=== PATIENT | female | born 1995 | race Caucasian/White ===

== ENCOUNTER → 2017-02-05 | Outpatient (CLI) | payer OTHER | LOC: US 09:22 | DX: R10.84 Generalized abdominal pain (principal); R94.5 Abnormal results of liver function studies; K76.0 Fatty (change of) liver, not elsewhere classified | CPT/HCPCS: 76705 ==

== ENCOUNTER → 2017-02-23 | Outpatient (CLI) | payer OTHER | LOC: NM 13:39 | DX: R10.84 Generalized abdominal pain (principal); R19.7 Diarrhea, unspecified; R93.2 Abnormal findings on diagnostic imaging of liver and biliary tract | CPT/HCPCS: 78227; A9537; J2805 ==

== ENCOUNTER → 2017-03-09 | Outpatient (CLI) | payer OTHER | LOC: US 13:55 | DX: N92.6 Irregular menstruation, unspecified (principal) ==

== ENCOUNTER 2021-02-22 10:15 | Inpatient (IN) | payer BC, OTHER ==
[~2021-02-22] VITALS: Ht 157.5 cm; Wt 97.1 kg
[~2021-02-22 10:15] MED LIST: CIPRO500 MG PO
[2021-02-22 11:25] LABS: HEMOGLOBIN 12.2 gm/dl (12.3-15.3); RED BLOOD COUNT 4.19 M/UL (4.00-5.10); WHITE BLOOD COUNT 11.6 K/UL (4.5-11.0)
[2021-02-22 12:10] LABS: BUN/CREATININE RATIO 18 (0-10)
[2021-02-23] MEDS ORDERED: PRENATAL VITAM1 EAC5 PO (02:02)
[2021-02-23] MEDS ORDERED: COLACE100 MG PO (16:10)
[2021-02-23] MEDS ORDERED: IBUPROFEN800 MG PO (16:10)
[2021-02-23] MEDS ORDERED: PERCOCET 5/325 T1 EA PO (16:10)
[2021-02-24 02:22] LABS: HEMOGLOBIN 10.5 gm/dl (12.3-15.3)
== END 2021-02-25 11:24 | disposition home or self-care (01) | DRG 807 ==
LOC: GENOP 10:15 → OB 02-23 13:45
PROVIDERS: Obstetrics & Gynecology; ADMIT Obstetrics & Gynecology
PROC: 10E0XZZ Delivery of Products of Conception, External Approach (ICD-10-PCS; principal; 2021-02-23)
PROC: 10907ZC Drainage of Amniotic Fluid, Therapeutic from Products of Conception, Via Natural or Artificial Opening (ICD-10-PCS; 2021-02-23)
PROC: 0UQGXZZ Repair Vagina, External Approach (ICD-10-PCS; 2021-02-23)
PROC: 0U7C7ZZ Dilation of Cervix, Via Natural or Artificial Opening (ICD-10-PCS; 2021-02-23)
PROC: 3E0234Z Introduction of Serum, Toxoid and Vaccine into Muscle, Percutaneous Approach (ICD-10-PCS; 2021-02-25)
DX: O14.14 Severe pre-eclampsia complicating childbirth (principal); Z37.0 Single live birth; Z3A.36 36 weeks gestation of pregnancy; O70.0 First degree perineal laceration during delivery; O69.81X0 Labor and delivery complicated by cord around neck, without compression, not applicable or unspecified; Z88.1 Allergy status to other antibiotic agents; Z88.2 Allergy status to sulfonamides; O99.284 Endocrine, nutritional and metabolic diseases complicating childbirth; E28.2 Polycystic ovarian syndrome; O99.214 Obesity complicating childbirth; L73.2 Hidradenitis suppurativa; O75.89 Other specified complications of labor and delivery; Z20.822 Contact with and (suspected) exposure to COVID-19; Z23 Encounter for immunization
CPT/HCPCS: 36415; 51702; 80053; 81001; 82570; 83615; 84156; 84550; 85014; 85018; 85025; 90471; 90472; 90707; 90715; J0690; J2001; J2590; J3010; J7120; U0002

== ENCOUNTER → 2022-03-13 | Outpatient (CLI) | payer BC, OTHER ==
[~2022-03-13] MED LIST changes: +AZELASTINE137 MCG/0.; +BENZOYL PEROXI TOP; +BENZOYL PEROXID TOP; +CLINDAMYCIN HC300 MG PO; +CLINDAMYCIN PHOSP 1% TOP; +COLACE100 MG PO; +EPIPEN 2-P0.3 MG/0.3 INJ; +IBU800 MG PO; +IBUPROFEN800 MG PO; +LORATADINE10 MG PO; +PERCOCET 5/325 T1 EA PO; +PRENATAL VITAM1 EAC5 PO; +SILVADENE20 GM TOP
[2022-03-13 14:10] LABS: HEMOGLOBIN 15.1 gm/dl (12.3-15.3); RED BLOOD COUNT 5.19 M/UL (4.00-5.10); WHITE BLOOD COUNT 10.9 K/UL (4.5-11.0)
[2022-03-13 14:38] LABS: BUN/CREATININE RATIO 17 (0-10)
[2022-03-14 08:14] LABS: HBSAG SCREEN Negative (Negative); HCV AB <0.1 (0.0-0.9); HEP A AB, IGM Negative (Negative); HEP B CORE AB, IGM Negative (Negative); HIV AB/P24 AG SCREEN Non Reactive (Non Reactive)
[2022-03-15 21:07] LABS: QUANTIFERON MITOGEN VALUE >10.00 IU/mL (.); QUANTIFERON TB1 AG VALUE 0.07 IU/mL (.); QUANTIFERON TB2 AG VALUE 0.06 IU/mL (.); QUANTIFERON-TB GOLD PLUS Negative (Negative)
== END ==
LOC: OPSV2 10:00
PROVIDERS: Dermatology
DX: L73.2 Hidradenitis suppurativa (principal)
CPT/HCPCS: 71046; 80053; 80074; 80076; 84703; 85025; 87389

== ENCOUNTER → 2022-03-20 | Day surgery (SDC) | payer BC, OTHER ==
[~2022-03-20] MED LIST changes: +HYDROCODON-ACE1 EAC4 PO
== END | disposition home or self-care (01) ==
LOC: OR 05:47
DX: L73.2 Hidradenitis suppurativa (principal); F41.9 Anxiety disorder, unspecified; E11.65 Type 2 diabetes mellitus with hyperglycemia; E03.9 Hypothyroidism, unspecified; J30.9 Allergic rhinitis, unspecified; L70.9 Acne, unspecified; Z79.2 Long term (current) use of antibiotics; Z79.899 Other long term (current) drug therapy; Z88.1 Allergy status to other antibiotic agents; Z88.7 Allergy status to serum and vaccine; Z88.2 Allergy status to sulfonamides; Z91.041 Radiographic dye allergy status
CPT/HCPCS: 84703; J1170; J2001; J2250; J2704